=== PATIENT | male | born 1955 ===

== ENCOUNTER 2016-12-23 15:37 | Emergency (ER) | payer MEDICARE ==
[2016-12-23 15:43] VITALS: TEMP 98.4; BMI 34.9
--- NOTE | 2016-12-23 16:24 | C.PDOC ---
History Of Present Illness 61 yo male come in for evaluation of Right hand and Right elbow pain gradually developed since yesterday "after was working at home and overused my Right hand ". Otherwise, pt denies known direct trauma or injury, fever, chills, skin cahnges, weakness, sensory or vascular deficits to Right hand. Ambulate to Ed for evaluation, appears in pain. Time Seen by Provider: 12/23/16 16:02 Chief Complaint (Nursing): Upper Extremity Problem/Injury History Per: Patient History/Exam Limitations: no limitations Onset/Duration Of Symptoms: Days (1) Past Medical History Reviewed: Historical Data, Nursing Documentation, Vital Signs Vital Signs: Last Vital Signs Temp 98.4 F 12/23/16 15:43 Pulse 100 H 12/23/16 15:43 Resp 20 12/23/16 15:43 BP 170/93 H 12/23/16 15:43 Pulse Ox 98 12/23/16 17:05 - Medical History PMH: Arthritis (gouty), Diabetes, HTN, Hypercholesterolemia, Osteoporosis - [facility] Procedures CENTRAL VENOUS CATHETER PLACEMENT WITH GUIDANCE (10/09/13) INFLUENZA VACCINATION (10/09/13) VACCINATION NEC (10/09/13) Family History: States: No Known Family Hx - Social History Hx Tobacco Use: No Hx Alcohol Use: Yes Hx Substance Use: No - Immunization History Hx Tetanus Toxoid Vaccination: Yes Hx Influenza Vaccination: Yes Hx Pneumococcal Vaccination: Yes Review Of Systems Except As Marked, All Systems Reviewed And Found Negative. Constitutional: Negative for: Fever, Chills Musculoskeletal: Positive for: Hand Pain (Right Hand ), Other ((+) Right Elbow ) Neurological: Negative for: Weakness, Numbness Physical Exam - Physical Exam Appears: Well, Non-toxic, No Acute Distress Skin: Normal Color, Warm, No Rash, No Ecchymosis Extremity: Normal ROM (Right elbow , and mild discomfort Right hand due to mild pain. No neurovascular deficits. ), Tenderness (Right thenar and dorsal asepct Right hand overlying thumb area. Right elbow lateral aspect. No edema, no erythema, no warth. ), Capillary Refill (less than 2sec to Right hand), No Deformity, No Swelling Neurological/Psych: Oriented x3, Normal Speech, Normal Motor, Normal Sensation, Normal Reflexes ED Course And Treatment O2 Sat by Pulse Oximetry: 98 - Other Rad X-Ray - Right Hand X-Ray: Viewed By Me, Read By Radiologist Interpretation: PROCEDURE: Right Hand Radiographs. HISTORY: pain. COMPARISON : None available. FINDINGS: BONES: No acute displaced fracture. Degenerative changes. JOINTS: No dislocation. Joint space narrowing most prominent at the radial carpal joint. SOFT TISSUES: Mild soft tissue swelling. No evidence of radiopaque foreign body. OTHER FINDINGS: None. IMPRESSION: Mild soft tissue swelling. Degenerative changes. No acute displaced fracture or dislocation identified. If symptoms persist, or if there is continued clinical concern, x-ray follow-up in 7-10 days should be considered. X-Ray - Right Elbow X-Ray: Viewed By Me, Read By Radiologist Interpretation: Creator : Adrianna Obrien MD. Dictator : Adrianna Obrien MD. Book Author : Claim Approver : Adrianna Obrien MD. Approver2 : Report Date : 12/23/2016 17:19:25. My Comment : . PROCEDURE: Radiographs of the right elbow. HISTORY: pain. COMPARISON: None available. FINDINGS: BONES: No acute displaced fracture. Degenerative changes including large olecranon osteophyte. JOINTS: No dislocation. SOFT TISSUES: Unremarkable. No evidence of radiopaque foreign body. JOINT EFFUSION : No significant joint effusion. OTHER FINDINGS: None. IMPRESSION: Degenerative changes including large olecranon osteophyte. No acute displaced fracture, dislocation, or significant joint effusion identified.If high clinical suspicion for occult fracture recommend cross-sectional imaging for further evaluation. Otherwise, if symptoms persist, or if there is continued clinical concern, x-ray follow-up in 7-10 days should be considered. Progress Note: On re-eavl, pt becca febrile, hemodynamicalys table. NOn-toxic. RUE: exam c/w elbow and hand arthralgia, FAROM, no neurovascular deficits. no cellulitis or deformity. Xray review and appears without acute abnormalities. Volar splint applied. Pt advised on course of ds. ref. to f/u with PMD, Ortho in 2-3 days for re-eavl. return if any new changes. Medical Decision Making Medical Decision Making: PLAN: * X-Ray - Right Elbow, Right Hand * Accu Check * Indocin PO * Percocet PO * Prednisone PO Disposition Counseled Patient/Family Regarding: Studies Performed, Diagnosis, Need For Followup, Rx Given - Disposition Referrals: Isma Vernon Jr., MD [Medical Doctor] - Disposition: HOME/ ROUTINE Disposition Time: 17:01 Condition: STABLE Additional Instructions: Splint for 1 week Light duty to Right hand Take medication as prescribed Follow up with PMD, Orthopedist in 2-3 days for re-evaluation. Return to Ed if any worsening or new changes. Prescriptions: Indomethacin [Indocin] 50 mg PO BID #10 cap Prednisone [Deltasone] 40 mg PO DAILY #6 tablet Instructions: Tennis Elbow (ED), Hand Sprain (ED) Print Language: SETSWANA - Clinical Impression Clinical Impression: Arthralgia of elbow, Arthralgia of hand - PA / GREEN PLUMBER / Resident Statement MD/DO has reviewed & agrees with the documentation as recorded. - Scribe Statement The provider has reviewed the documentation as recorded by the Scribdonna Morales All medical record entries made by the Melba were at my direction and personally dictated by me. I have reviewed the chart and agree that the record accurately reflects my personal performance of the history, physical exam, medical decision making, and the department course for this patient. I have also personally directed, reviewed, and agree with the discharge instructions and disposition.
[2016-12-23] MEDS ORDERED: Oxycodone/Acetaminophen 5/325 mg Tab PO STA (16:39)
[2016-12-23] MEDS ORDERED: Oxycodone/Acetaminophen 5/325 mg Tab ONE (16:50)
--- NOTE | 2016-12-23 16:50 | RAD ---
PROCEDURE: Right Hand Radiographs. HISTORY: pain COMPARISON: None available. FINDINGS: BONES: No acute displaced fracture. Degenerative changes. JOINTS: No dislocation. Joint space narrowing most prominent at the radial carpal joint. SOFT TISSUES: Mild soft tissue swelling. No evidence of radiopaque foreign body. OTHER FINDINGS: None. IMPRESSION: Mild soft tissue swelling. Degenerative changes. No acute displaced fracture or dislocation identified. If symptoms persist, or if there is continued clinical concern, x-ray follow-up in 7-10 days should be considered.
--- NOTE | 2016-12-23 17:21 | RAD ---
PROCEDURE: Radiographs of the right elbow. HISTORY: pain COMPARISON: None available. FINDINGS: BONES: No acute displaced fracture. Degenerative changes including large olecranon osteophyte. JOINTS: No dislocation. SOFT TISSUES: Unremarkable. No evidence of radiopaque foreign body. JOINT EFFUSION: No significant joint effusion. OTHER FINDINGS: None IMPRESSION: Degenerative changes including large olecranon osteophyte. No acute displaced fracture, dislocation, or significant joint effusion identified.If high clinical suspicion for occult fracture recommend cross-sectional imaging for further evaluation. Otherwise, if symptoms persist, or if there is continued clinical concern, x-ray follow-up in 7-10 days should be considered.
[2016-12-23 17:31] VITALS: BP 169/90; PULSE 94; RESP 16; O2SAT 100
== END 2016-12-23 17:30 | disposition home or self-care (01) ==
LOC: C.ER 15:37
DX: M25.521 Pain in right elbow (principal)
CPT/HCPCS: 73080; 73130; 82948; 96372; 99284; J1885

== ENCOUNTER 2017-02-11 22:07 | Emergency (ER) | payer MEDICARE ==
[2017-02-11 22:08] VITALS: BMI 34.9
[2017-02-11 22:13] VITALS: O2SAT 100
[2017-02-12 00:20] VITALS: BP 135/86; PULSE 78; RESP 18; TEMP 98.5
--- NOTE | 2017-02-12 00:21 | C.PDOC ---
History Of Present Illness 61 year old male with a Hx of gout who presents to the ER with a complaint of right toe pain and swelling for the past 2 days. Patient states he takes percocet at home but it no longer helps; denies fever or trauma. Time Seen by Provider: 02/11/17 23:01 Chief Complaint (Nursing): Lower Extremity Problem/Injury History Per: Patient History/Exam Limitations: no limitations Onset/Duration Of Symptoms: Days Current Symptoms Are (Timing): Still Present Recent travel outside of the [place]: No Past Medical History Reviewed: Historical Data, Nursing Documentation, Vital Signs Vital Signs: Last Vital Signs Temp 98.5 F 02/12/17 00:20 Pulse 78 02/12/17 00:20 Resp 18 02/12/17 00:20 BP 135/86 02/12/17 00:20 Pulse Ox 100 02/13/17 02:12 - Medical History PMH: Arthritis (gouty), Diabetes, HTN, Hypercholesterolemia, Osteoporosis Surgical History: No Surg Hx - [facility] Procedures CENTRAL VENOUS CATHETER PLACEMENT WITH GUIDANCE (10/09/13) INFLUENZA VACCINATION (10/09/13) VACCINATION NEC (10/09/13) Family History: States: Unknown Family Hx - Social History Hx Tobacco Use: No Hx Alcohol Use: Yes Hx Substance Use: No - Immunization History Hx Tetanus Toxoid Vaccination: No Hx Influenza Vaccination: No Hx Pneumococcal Vaccination: No Review Of Systems Constitutional: Negative for: Fever, Chills Musculoskeletal: Positive for: Foot Pain Physical Exam - Physical Exam Appears: Non-toxic Skin: Normal Color, Warm, Dry Head: Atraumatic, Normacephalic Oral Mucosa: Moist Extremity: Tenderness (Right great toe), Capillary Refill (Good), Swelling ( Right great toe), Other (Decreased ROM of right great toe, +erythema and mild warmth to great toe) Pulses: Left Dorsalis Pedis: Normal, Right Dorsalis Pedis: Normal (+2) ED Course And Treatment O2 Sat by Pulse Oximetry: 100 (Room air) Pulse Ox Interpretation: Normal Progress Note: Toradol administered. Medical Decision Making Medical Decision Making: pt feeling much better after toradol. will d/c home with nsaids. pmd f/u Disposition Counseled Patient/Family Regarding: Diagnosis, Need For Followup, Rx Given - Disposition Referrals: Isma Vernon Jr., MD [Medical Doctor] - Disposition: HOME/ ROUTINE Disposition Time: 00:23 Condition: STABLE Additional Instructions: Take ibuprofen as directed.. Follow up with Dr Vernon on Tuesday. Prescriptions: Ibuprofen [Motrin] 600 mg PO TID #30 tab Instructions: Gout (ED) Forms: Gen Discharge Inst Serbian - POA Present On Arrival: None - Clinical Impression Clinical Impression: Gout involving toe of right foot - Scribe Statement The provider has reviewed the documentation as recorded by the Scribdonna Morrow All medical record entries made by the Jacquieibdonna were at my direction and personally dictated by me. I have reviewed the chart and agree that the record accurately reflects my personal performance of the history, physical exam, medical decision making, and the department course for this patient. I have also personally directed, reviewed, and agree with the discharge instructions and disposition.
== END 2017-02-12 00:28 | disposition home or self-care (01) ==
LOC: C.ER 22:07
DX: M10.9 Gout, unspecified (principal)
CPT/HCPCS: 96372; 99283; J1885

== ENCOUNTER 2018-07-12 06:08 | Day surgery (SDC) | payer MEDICARE ==
[2018-07-12 06:50] VITALS: BMI 34.7
[2018-07-12 07:17] VITALS: PULSE 80; RESP 20; O2SAT 100
[2018-07-12] MEDS ORDERED: Lactated Ringer's 1,000 ML IV ONE (09:00)
--- NOTE | 2018-07-12 09:00 | CP.SDSHP ---
Same Day Surgery H & P - History Proposed Procedure: colonoscopy Pre-Op Diagnosis: polyp surveillance - Previous Medical/Surgical History Cardiac: Hypertension Endocrine/Metabolic: Diabetes Comments: prostate CA, gout, hyperlipidemia Previous Surgical History: left carpal tunnel - Allergies Allergies: Allergies No Known Allergies Allergy (Verified 07/12/18 06:49) - Current Medications Current Medications: reviewed, per reconciliation - Physical Exam General Appearance: wdwn nad Vital Signs: Vital Signs 07/12/18 07:08 Temperature 99.3 F Pulse Rate 80 Respiratory 20 Rate Blood Pressure 155/68 H O2 Sat by Pulse 100 Oximetry Mental Status: Alert & Oriented x3 Heart: WNL Lungs: WNL GI: WNL - {Optional Preform as Required} Abdomen: WNL - Impression Impression: history of colon polyps Pt. Evaluated Today:Candidate for Anesthesia & Procedure: Yes - Date & Time Date: 07/12/18 Time: 09:00 Short Stay Discharge - Short Stay Discharge Admitting Diagnosis/Reason for Visit: H/O COLONIC POLYP Disposition: HOME/ ROUTINE
[2018-07-12] MEDS ORDERED: Propofol 10 mg/ml Inj (20 ML) ONE (09:03)
[2018-07-12] MEDS ORDERED: Midazolam 2 MG/2 ML VIAL ONE (09:03)
[2018-07-12 09:33] VITALS: TEMP 98
[2018-07-12 10:00] VITALS: BP 119/78
== END 2018-07-12 09:59 | disposition home or self-care (01) ==
LOC: C.ENDO 06:08
PROVIDERS: ATTEND Internal Medicine Gastroenterology
DX: Z86.010 Personal history of colon polyps (principal); K64.8 Other hemorrhoids
CPT/HCPCS: 45378; 82948; J2250; J2704; J7120

== ENCOUNTER 2018-08-26 08:58 | Outpatient (CLI) | payer MEDICARE | END 2018-08-26 08:59 | disposition home or self-care (01) | LOC: C.LAB 08:58 | DX: C61 Malignant neoplasm of prostate (principal) ==